=== PATIENT | female | born 1975 | race American Indian/Alaskan Native ===

== ENCOUNTER 2017-01-04 12:47 | Emergency (ER) | payer OTHER ==
--- NOTE | 2017-01-04 13:12 | Emergency Department Report ---
Entered by CHAR JAY, acting as scribe for JUVENTINO MORENO NP. Chief Complaint: Dizziness Stated Complaint: DIZZY Time Seen by Provider: 01/04/17 13:01 - HPI History of Present Illness: 41 y/o female presents with dizziness that started yesterday. Sx include vaginal bleeding but pt denies ear pain. Pt notes that she thinks her Hgb is low , which occurred two years ago during her tubal ligation and reports that Sx now are worse. LMP- currently on menstrual cycle. - ROS Review of Systems: +dizziness -ear pain - Exam Vital Signs: Vital Signs 01/04/17 13:01 Temperature 98.3 F Pulse Rate 63 Respiratory 16 Rate Blood Pressure 117/54 O2 Sat by Pulse 100 Oximetry Physical Exam: a and o x4 steady gait no focal deficits MSE screening note: Focused history and physical exam performed. Due to findings the following was ordered: labs ED Disposition for MSE Condition: Stable This documentation as recorded by the scribe,CHAR JAY,accurately reflects the service I personally performed and the decisions made by ,JUVENTINO MORENO , [employer].
[2017-01-04 13:31] LABS: Basophils % (Auto) 0.4 % (0.0-1.8); Eosinophils % (Auto) 0.7 % (0.0-4.3); Hematocrit 30.8 % (30.3-42.9); Hemoglobin 9.9 gm/dl (10.1-14.3); Mean Corpuscular HGB Conc 32 % (30-34); Mean Corpuscular Hemoglobin 26 pg (28-32); Mean Corpuscular Volume 81 fl (79-97); Platelet Count 219 K/mm3 (140-440); Red Blood Count 3.79 M/mm3 (3.65-5.03); Red Cell Distribution Width 18.6 % (13.2-15.2); White Blood Count 3.9 K/mm3 (4.5-11.0)
[2017-01-04 13:41] LABS: Anion Gap 17 mmol/L; Blood Urea Nitrogen 7 mg/dL (7-17); Calcium 8.9 mg/dL (8.4-10.2); Carbon Dioxide 23 mmol/L (22-30); Chloride 102.2 mmol/L (98-107); Glucose 88 mg/dL (65-100); Potassium 4.3 mmol/L (3.6-5.0); Sodium 138 mmol/L (137-145)
[2017-01-04 16:35] VITALS: BP 116/83
--- NOTE | 2017-01-04 17:30 | Emergency Department Report ---
ED Dizziness HPI - General Chief Complaint: Dizziness Stated Complaint: DIZZY Time Seen by Provider: 01/04/17 13:04 Source: patient Mode of arrival: Ambulatory Limitations: No Limitations - History of Present Illness Initial Comments: Patient is a 41-year-old female history of anemia who presents due to dizziness and lightheadedness times one day. Patient states that she was at home sitting down when she started getting lightheaded and dizzy. Patient eyes any aggravating or alleviating factors. Patient denies any chest pain, shortness of breath, palpitation, syncope. Patient denies any nausea vomiting. Patient denies any numbness or tingling. Patient denies any headache, neck pain or seizures. Patient states that she had an episode where she was severely anemic 2 years ago and her hemoglobin was 4.4. Patient denies any history of CAD, congenital heart defects. Patient has any history of smoking. Patient denies any history of vertigo MD Complaint: lightheadedness Onset/Timin -: days(s) Timing: sudden onset Description: lightheadedness History of Same: No History of Trauma: No Severity: mild Improves With: nothing Worsens With: nothing - Related Data Previous Rx's Medication Instructions Recorded Last Taken Type Meclizine [Antivert] 25 mg PO Q6HR PRN #20 tablet 01/04/17 Unknown Rx Allergies Allergy/AdvReac Type Severity Reaction Status Date / Time No Known Allergies Allergy Verified 01/04/17 13:05 ED Review of Systems ROS: Stated complaint: DIZZY Other details as noted in HPI Comment: All other systems reviewed and negative Constitutional: no symptoms reported. denies: chills, diaphoresis, fever, malaise, weakness Eyes: denies: eye pain, eye discharge, vision change ENT: denies: ear pain, throat pain, dental pain, hearing loss, epistaxis Respiratory: no symptoms reported. denies: cough, orthopnea, shortness of breath, SOB with exertion, SOB at rest, stridor, wheezing Cardiovascular: denies: chest pain, palpitations, dyspnea on exertion, orthopnea , edema, syncope, paroxysmal nocturnal dyspnea Gastrointestinal: denies: abdominal pain, nausea, vomiting, diarrhea Genitourinary: denies: urgency, dysuria, frequency, hematuria, discharge Neurological: denies: headache, weakness Psychiatric: denies: anxiety ED Past Medical Hx - Past Medical History Previous Medical History?: No - Surgical History Past Surgical History?: Yes Additional Surgical History: , tubal - Social History Smoking Status: Never Smoker Substance Use Type: Alcohol - Medications Home Medications: Home Medications Medication Instructions Recorded Confirmed Last Taken Type Meclizine [Antivert] 25 mg PO Q6HR PRN #20 tablet 01/04/17 Unknown Rx ED Physical Exam - General Limitations: No Limitations General appearance: alert, in no apparent distress - Head Head exam: Present: atraumatic, normocephalic, normal inspection - Eye Eye exam: Present: normal appearance, PERRL, EOMI. Absent: conjunctival injection Pupils: Present: normal accommodation - Neck Neck exam: Present: normal inspection, full ROM. Absent: tenderness, meningismus - Respiratory Respiratory exam: Present: normal lung sounds bilaterally. Absent: respiratory distress, wheezes, rales, rhonchi, stridor, chest wall tenderness - Cardiovascular Cardiovascular Exam: Present: regular rate, normal rhythm, normal heart sounds - Extremities Exam Extremities exam: Present: normal inspection, full ROM. Absent: tenderness, normal capillary refill - Back Exam Back exam: Present: normal inspection, full ROM. Absent: tenderness, CVA tenderness (R), muscle spasm - Neurological Exam Neurological exam: Present: alert, oriented X3, normal gait - Psychiatric Psychiatric exam: Present: normal affect, normal mood - Skin Skin exam: Present: warm, dry, intact ED Course Vital Signs 01/04/17 01/04/17 01/04/17 13:01 15:35 16:34 Temperature 98.3 F Pulse Rate 63 71 87 Respiratory 16 18 18 Rate Blood Pressure 117/54 Blood Pressure 100/57 116/83 [Right] O2 Sat by Pulse 100 99 100 Oximetry ED Medical Decision Making - Lab Data Result diagrams: 01/04/17 13:11 01/04/17 13:11 Lab Results 01/04/17 01/04/17 01/04/17 Range/Units 13:11 13:11 13:11 WBC 3.9 L (4.5-11.0) K/mm3 RBC 3.79 (3.65-5.03) M/mm3 Hgb 9.9 L (10.1-14.3) gm/dl Hct 30.8 (30.3-42.9) % MCV 81 (79-97) fl MCH 26 L (28-32) pg MCHC 32 (30-34) % RDW 18.6 H (13.2-15.2) % Plt Count 219 (140-440) K/mm3 Lymph % (Auto) 32.3 (13.4-35.0) % [place] % (Auto) 8.2 H (0.0-7.3) % Eos % (Auto) 0.7 (0.0-4.3) % Baso % (Auto) 0.4 (0.0-1.8) % Lymph # 1.2 (1.2-5.4) K/mm3 [place] # 0.3 (0.0-0.8) K/mm3 Eos # 0.0 (0.0-0.4) K/mm3 Baso # 0.0 (0.0-0.1) K/mm3 Seg Neutrophils % 58.4 (40.0-70.0) % Seg Neutrophils # 2.3 (1.8-7.7) K/mm3 Sodium 138 (137-145) mmol/L Potassium 4.3 (3.6-5.0) mmol/L Chloride 102.2 (98-107) mmol/L Carbon Dioxide 23 (22-30) mmol/L Anion Gap 17 mmol/L BUN 7 (7-17) mg/dL Creatinine 0.7 (0.7-1.2) mg/dL Estimated GFR > 60 ml/min BUN/Creatinine Ratio 10.00 % Glucose 88 (65-100) mg/dL Calcium 8.9 (8.4-10.2) mg/dL Troponin T (0.00-0.029) ng/mL HCG, Qual Negative (Negative) Blood Type Antibody Screen 01/04/17 01/04/17 Range/Units 13:11 16:35 WBC (4.5-11.0) K/mm3 RBC (3.65-5.03) M/mm3 Hgb (10.1-14.3) gm/dl Hct (30.3-42.9) % MCV (79-97) fl MCH (28-32) pg MCHC (30-34) % RDW (13.2-15.2) % Plt Count (140-440) K/mm3 Lymph % (Auto) (13.4-35.0) % [place] % (Auto) (0.0-7.3) % Eos % (Auto) (0.0-4.3) % Baso % (Auto) (0.0-1.8) % Lymph # (1.2-5.4) K/mm3 [place] # (0.0-0.8) K/mm3 Eos # (0.0-0.4) K/mm3 Baso # (0.0-0.1) K/mm3 Seg Neutrophils % (40.0-70.0) % Seg Neutrophils # (1.8-7.7) K/mm3 Sodium (137-145) mmol/L Potassium (3.6-5.0) mmol/L Chloride (98-107) mmol/L Carbon Dioxide (22-30) mmol/L Anion Gap mmol/L BUN (7-17) mg/dL Creatinine (0.7-1.2) mg/dL Estimated GFR ml/min BUN/Creatinine Ratio % Glucose (65-100) mg/dL Calcium (8.4-10.2) mg/dL Troponin T < 0.010 (0.00-0.029) ng/mL HCG, Qual (Negative) Blood Type O POSITIVE Antibody Screen Negative - Radiology Data Radiology results: image reviewed interpreted by me: Chest x-ray showed normal findings - Medical Decision Making Patient was in no acute distress in the ER, she had no chest pain or shortness of breath, no palpitations. Patient did not feel lightheaded or dizzy and the ER. Patient has no history of CAD or family history of CAD. Patient has no history of vertigo. Patient's hemoglobin was 9.9, HCT 30.8, troponin <0.01 EKG NSR, NO ST elevation. patient was given information to follow up with a neurologist. patient was discussed with Dr. Cortés who agreed with treatment and plan. - Differential Diagnosis benign paroxysmal positional Vertigo, Anemia, Meniere disease Critical care attestation.: If time is entered above; I have spent that time in minutes in the direct care of this critically ill patient, excluding procedure time. ED Disposition Clinical Impression: Dizziness Disposition: DC-01 TO HOME OR SELFCARE Is pt being admited?: No Does the pt Need Aspirin: No Condition: Good Instructions: Benign Paroxysmal Positional Vertigo (ED), Lightheadedness (ED) Additional Instructions: Take meclizine as prescribed for dizziness, all up with the provided neurologist for further evaluation of the dizziness. Follow-up with your primary caregiver provider Prescriptions: Meclizine [Antivert] 25 mg PO Q6HR PRN #20 tablet PRN Reason: Vertigo Referrals: PRIMARY CARE, [Primary Care Provider] - 3-5 Days JEROME YOUNG MD [Referring] - 3-5 Days Time of Disposition: 17:36
--- NOTE | 2017-01-05 07:43 | XRay Report ---
ROUTINE CHEST, TWO VIEWS: HISTORY: Cough. The trachea, heart, mediastinal contour, lung howard and bony thorax are unremarkable. IMPRESSION: Unremarkable chest x-ray.
== END 2017-01-04 17:51 | disposition home or self-care (01) ==
LOC: ED 12:47
DX: R42 Dizziness and giddiness (principal); D64.9 Anemia, unspecified
CPT/HCPCS: 36415; 71020; 80048; 84484; 84703; 85025; 86850; 86900; 86901; 93005; 93010; 99283